=== PATIENT | female | born 1950 | race American Indian/Alaskan Native ===

== ENCOUNTER 2017-02-11 08:44 | Outpatient (CLI) | payer BC ==
--- NOTE | 2017-02-11 09:47 | Mammography Report ---
BONE DEXA:02/11/17 09:30:00 CLINICAL: Postmenopausal. No comparison. TECHNIQUE: Two site bone DEXA performed on an Hologic scanner. FINDINGS: The average BMD of the lumbar spine L1-L3 is 0.795g/cm squared with a T-score of -2.0 and a Z-score of -1.0. The L4 vertebral body was excluded as an outlier because of endplate sclerosis at L4-5. The average BMD of the left hip is 0.777g/cm squared with a T-score of -1.3 and a Z-score of -0.6. IMPRESSION: 1. WHO classification: Osteopenia with increased fracture risk based on the spine and left hip measurements. 2. The FRAX 10 year fracture probability for a major osteoporotic fracture is 4.3%. 3. The FRAX 10 year fracture probability for hip fracture is 0.6%. Note: FRAX version 3.01. Fracture probability calculated for an untreated patient. Fracture probability may be lower if the patient has received treatment. RECOMMENDATION: Clinical correlation and routine screening. DEFINITIONS: BMD = Bone Mineral Density T-score = BMD related to mean peak bone mass of young adult (mean expressed in Standard Deviation) Z-score = Age matched BMD expressed in SD World Health Organization (WHO) Diagnostic Criteria Normal T-score > -1 SD Osteopenia T-score between -1 and -2.4 SD Osteoporosis T-score -2.5 SD or below NOTE: BMD is not the only risk factor for fracture; also consider factors such as the patient's age, risk of falling, previous osteoporotic fracture, family history of osteoporotic fractures, current smoker, and low body weight. All treatment decisions require clinical judgment and consideration of individual patient factors, including patient preferences, comorbidities, previous drug use and risk factors not captured in the FRAX model (e.g. frailty, falls, vitamin D deficiency, increased bone turnover, interval significant decline in BMD). Fracture probability is calculated for an untreated patient. Fracture probability may be lower if the patient has received treatment. Z-scores are not calculated if >80 years of age.
== END 2017-02-11 08:45 | disposition home or self-care (01) ==
LOC: MAMMO 08:44
PROVIDERS: ATTEND Internal Medicine Pulmonary Disease
DX: M85.88 Other specified disorders of bone density and structure, other site (principal); E11.9 Type 2 diabetes mellitus without complications; I10 Essential (primary) hypertension; E78.00 Pure hypercholesterolemia, unspecified; Z87.891 Personal history of nicotine dependence
CPT/HCPCS: 77080

== ENCOUNTER 2020-03-22 10:24 | Outpatient (CLI) | payer MEDICARE ==
--- NOTE | 2020-03-22 12:42 | Mammography Report ---
DEXA BONE DENSITY SCAN INDICATION: BONE DENSITY. COMPARISON: DEXA scan from 02/11/2017 LUMBAR SPINE (L1-L3): Bone mineral density (BMD) is 0.813 g/cm2. T-score is -1.9 (standard deviations of Young Adult mean). Z-score is -0.6 (standard deviations of Age Matched mean). There has been a 2.2% increase in bone mineral density in this region since 2017. LEFT FEMORAL NECK: Bone mineral density (BMD) is 0.606 g/cm2. T-score is -2.2 (standard deviations of Young Adult mean). Z-score is -1.0 (standard deviations of Age Matched mean). There has been a 2.1% decrease in bone mineral density in this region since 2017. IMPRESSION: 1. WHO Classification: Osteopenia. Fracture Risk: Increased. Signer Name: Jignesh Cartwright MD Signed: 03/22/2020 12:36 PM Workstation Name: [id number]
--- NOTE | 2020-03-22 14:58 | Mammography Report ---
DIGITAL SCREENING MAMMOGRAM WITH CAD, 03/22/2020 INDICATION: Routine screening mammography. S[facility] MAMMO TECHNIQUE: Digital bilateral 2D mammography was obtained in the craniocaudal and mediolateral obliq ue projections. This examination was interpreted with the benefit of Computer-Aided Detection analysi s. COMPARISON: 05/15/2015 FINDINGS: Breast Density: There are scattered areas of fibroglandular density. There is no evidence of dominant mass, suspicious calcifications or architectural distortion in eithe r breast. IMPRESSION: Follow up recommendation: Routine yearly BI-RADS Category 1: Negative. A "normal" or negative report should not discourage follow up or biopsy of a clinically significant f inding. A written summary of these findings will be mailed to the patient. The patient will be entered into a mammography reporting system which will generate a reminder letter for the patient's next appointmen t at the appropriate interval. The [employer] recommends yearly mammograms starting at age 40 and continuing as l trupti as a woman is in good health. Breast MRI is recommended for women with an approximate 20-25% or greater lifetime risk of breast cancer, including women with a strong family history of breast or ova rosanna cancer or who have been treated for Hodgkin's disease. Signer Name: Jignesh Cartwright MD Signed: 03/22/2020 2:54 PM Workstation Name: [id number]
== END 2020-03-22 10:25 | disposition home or self-care (01) ==
LOC: MAMMO 10:24
PROVIDERS: ATTEND Internal Medicine Pulmonary Disease
DX: Z12.31 Encounter for screening mammogram for malignant neoplasm of breast (principal); M81.0 Age-related osteoporosis without current pathological fracture
CPT/HCPCS: 77067; 77080